=== PATIENT | female | born 1950 | race African-American/Black ===

== ENCOUNTER 2016-08-16 12:06 | Emergency (ER) | payer OTHER, MEDICAID ==
[2016-08-16 12:19] VITALS: BP 151/67; BMI 33.6
--- NOTE | 2016-08-16 12:32 | DR.GENAD ---
HPI - PCP Primary Care Physician: jori real - Complaint/Symptoms Chief Complaint Doctors Comments: Patient has an appointment with metal flow coordinator on Wednesday. She admits to three pillow orthopnea, PND and can walk only a short distance before becoming tired. She has CHF by history, and on a breathing machine daily for lungs. Chief Complaint:: patient stated she has been short of breath for several days stated she just feels tired all the time. - Source History Provided: Patient - Mode of Arrival Mode of Arrival: Ambulatory - Timing Onset of Chief Complaint: 08/16/16 PMH - PMH Past Medical History: Yes Past Medical History: Asthma, Diabetes Past Surgical History: Yes Surgical History: Ortho Surgery - Family History History of Family Medical Conditions: No - Social History Does patient currently use any type of tobacco product: No Have you used tobacco products in the last 12 months: No Type of Tobacco Use: None Does any household member use tobacco: No Alcohol Use: None Do you use any recreational Drugs:: No Lives With: Alone Lives Where: Home - infectious screening In the last 2 months have you had wt loss of >10#?: NO Have you had fever, night sweats or hemotysis?: No Have you traveled outside the country in the last 6 months?: No Isolation: Standard ROS - Review of Systems Eyes: No Symptoms Reported ENTM: No Symptoms Reported Respiratoy: No Symptoms Reported Cardiovascular: No Symptoms Reported Gastrointestinal/Abdominal: No Symptoms Reported Genitourinary: No Symptoms Reported Neurological: No Symptoms Reported Musculoskeletal: No Symptoms Reported Integumentary: No Symptoms Reported Hematologic/Lymphatic: No Symptoms Reported Endocrine: No Symptoms Reported Psychiatric: No Symptoms Reported All Other Systems: Reviewed and Negative PE - Vital Signs Vitals: Temperature 98.9 F Pulse Rate 110 Respiratory Rate 18 Blood Pressure 151/67 O2 Sat by Pulse Oximetry 100 - General Limitations: No Limitations General Appearance: Alert, In No Apparent Distress - Head Head Exam: Normal Inspection - Eyes Eye exam: Normal Appearance, PERRL, EOMI - ENT ENT Exam: Normal Exam External Ear Exam: Normal External Inspection TM/Canal Exam: Left Normal Nose Exam: Normal Nose Exam Mouth Exam: Normal Inspection Throat Exam: Normal Inspection - Neck Neck Exam: Normal Inspection - Chest Chest Inspection: Normal Inspection - Respiratory Respiratory Exam: Bilateral Clear to Auscultation - Cardiovascular Cardiovascular Exam: Regular Rate, Normal Rhythm - Abdominal Exam Abdominal Exam: Normal Inspection Abdominal Tenderness: negative: RUQ, RLQ, LUQ, LLQ, Epigastrium, Suprapubic, Diffuse, Mild, Moderate, Severe, Other - Extremities Extremities Exam: Normal Inspection, Full ROM - Back Back Exam: Normal Inspection, Tenderness - Neurologic Neurological Exam: Alert, Oriented X3, CN II-XII Intact - Psychiatric Psychiatric Exam: Normal Affect Course - Reevaluation 1st: Unchanged ROR - Labs Reviewed Laboratory Results Reviewed?: Yes (glucose elevated) Result Diagrams: 08/16/16 12:40 08/16/16 12:40 Laboratory: WBC 8.2 X10^3/uL (3.6-10.0) 08/16/16 12:40 RBC 4.50 X10^6/uL (3.5-5.4) 08/16/16 12:40 Hgb 12.5 g/dL (12.0-16.0) 08/16/16 12:40 Hct 37.7 % (36.0-47.0) 08/16/16 12:40 MCV 83.8 fL (80.0-100.0) 08/16/16 12:40 MCH 27.8 pg (27.0-34.0) 08/16/16 12:40 MCHC 33.1 g/dL (33.0-35.0) 08/16/16 12:40 RDW 13.8 % (11.6-16.5) 08/16/16 12:40 Plt Count 371 X10^3/uL (150.0-450.0) 08/16/16 12:40 MPV 6.8 fL (7.4-11.0) L 08/16/16 12:40 Neut % 62.5 % (42.0-75.0) 08/16/16 12:40 Lymph % 32.1 % (21.0-51.0) 08/16/16 12:40 Amador % 2.7 % (0.0-13.0) 08/16/16 12:40 Eos % 1.3 % (0.9-2.9) 08/16/16 12:40 Baso % 1.4 % (0.2-1.0) H 08/16/16 12:40 Neut # 5.1 x10^3/uL (2.2-4.8) H 08/16/16 12:40 Lymph # 2.6 X10^3/uL (1.3-2.9) 08/16/16 12:40 Amador # 0.2 x10^3/uL (0.3-0.8) L 08/16/16 12:40 Eos # 0.1 x10^3/uL (0.0-0.2) 08/16/16 12:40 Baso # 0.1 X10^3/uL (0.0-0.1) 08/16/16 12:40 Absolute Nucleated RBC 0.0 /100WBC 08/16/16 12:40 Sodium 136 mmol/L (136-145) 08/16/16 12:40 Corrected Sodium 139 mmol/L (136-145) 08/16/16 12:40 Potassium 4.2 mmol/L (3.5-5.1) 08/16/16 12:40 Chloride 100 mmol/L (98-107) 08/16/16 12:40 Carbon Dioxide 24.3 mmol/L (21-32) 08/16/16 12:40 BUN 19 mg/dL (7-18) H 08/16/16 12:40 Creatinine 0.94 mg/dL (0.55-1.02) 08/16/16 12:40 Est GFR (MDRD) Af Amer > 60 (>60) 08/16/16 12:40 Est GFR (MDRD) Non-Af > 60 (>60) 08/16/16 12:40 Glucose 211 mg/dL (65-99) H 08/16/16 12:40 Calcium 9.5 mg/dL (8.5-10.1) 08/16/16 12:40 Corrected Calcium TNP 08/16/16 12:40 Total Bilirubin 0.50 mg/dL (0.2-1.0) 08/16/16 12:40 AST 16 Units/L (15-37) 08/16/16 12:40 ALT 19 Units/L (12-78) 08/16/16 12:40 Alkaline Phosphatase 74 Units/L (46-116) 08/16/16 12:40 Total Protein 8.1 g/dL (6.4-8.2) 08/16/16 12:40 Albumin 3.7 g/dL (3.4-5.0) 08/16/16 12:40 Globulin 4.4 g/dL (2.5-4.5) 08/16/16 12:40 Albumin/Globulin Ratio 0.8 Ratio (1.1-2.1) L 08/16/16 12:40 - XRAY XRAY Interpreted by: Radiologist (Chest: no acute cardiopulmonary disease) - Diagnosis Discharge Problem: Bronchitis - Discharge Plan Condition: Stable - Follow ups/Referrals Follow ups/Referrals: NFD,None [Primary Care Provider] - 3 days - Instructions
[2016-08-16 12:52] LABS: BASOPHILS # (AUTO) 0.1 X10^3/uL (0.0-0.1); BASOPHILS % (AUTO) 1.4 % (0.2-1.0); EOSINOPHILS # (AUTO) 0.1 x10^3/uL (0.0-0.2); EOSINOPHILS % (AUTO) 1.3 % (0.9-2.9); HEMATOCRIT 37.7 % (36.0-47.0); HEMOGLOBIN 12.5 g/dL (12.0-16.0); LYMPHOCYTES # (AUTO) 2.6 X10^3/uL (1.3-2.9); LYMPHOCYTES % (AUTO) 32.1 % (21.0-51.0); MEAN CORPUSCULAR HEMOGLOBIN 27.8 pg (27.0-34.0); MEAN CORPUSCULAR HGB CONC 33.1 g/dL (33.0-35.0); MEAN CORPUSCULAR VOLUME 83.8 fL (80.0-100.0); MEAN PLATELET VOLUME 6.8 fL (7.4-11.0); MONOCYTES # (AUTO) 0.2 x10^3/uL (0.3-0.8); MONOCYTES % (AUTO) 2.7 % (0.0-13.0); NEUTROPHILS # (AUTO) 5.1 x10^3/uL (2.2-4.8); NEUTROPHILS % (AUTO) 62.5 % (42.0-75.0); PLATELET COUNT 371 X10^3/uL (150.0-450.0); RED CELL DISTRIBUTION WIDTH 13.8 % (11.6-16.5); WHITE BLOOD COUNT 8.2 X10^3/uL (3.6-10.0)
[2016-08-16 13:01] LABS: ALANINE AMINOTRANSFERASE 19 Units/L (12-78); ALBUMIN 3.7 g/dL (3.4-5.0); ALKALINE PHOSPHATASE 74 Units/L (46-116); ASPARTATE AMINO TRANSFERASE 16 Units/L (15-37); BLOOD UREA NITROGEN 19 mg/dL (7-18); CALCIUM 9.5 mg/dL (8.5-10.1); CARBON DIOXIDE 24.3 mmol/L (21-32); CHLORIDE 100 mmol/L (98-107); COR NA(FOR HYPERGLY) 139 mmol/L (136-145); CREATININE 0.94 mg/dL (0.55-1.02); GLUCOSE 211 mg/dL (65-99); SODIUM 136 mmol/L (136-145); TOTAL PROTEIN 8.1 g/dL (6.4-8.2); eGFR BLACK RACES > 60 (>60); eGFR NON BLACK RACES > 60 (>60)
--- NOTE | 2016-08-16 14:06 | RAD ---
HISTORY: Shortness of breath and cough 1 month Study: Two-view chest Comparison: January 16, 2014 Findings: The trachea is midline. The cardiac silhouette is unremarkable. The lungs are clear without focal infiltrate or effusion. The bony thorax is unremarkable. IMPRESSION: 1. No acute cardiopulmonary disease. Reported By:
== END 2016-08-16 14:18 | disposition home or self-care (01) ==
LOC: ER 12:12
DX: J40 Bronchitis, not specified as acute or chronic (principal)
CPT/HCPCS: 36415; 71020; 80053; 85025; 99282; 99283

== ENCOUNTER 2016-12-16 12:23 | Emergency (ER) | payer MEDICAID, OTHER ==
[2016-12-16 12:31] VITALS: BP 131/69; BMI 32.8
--- NOTE | 2016-12-16 12:46 | DR.GENAD ---
HPI - PCP Primary Care Physician: nfd - Complaint/Symptoms Chief Complaint Doctors Comments: Patient states that she spent the weekend in [place] and got bedbug bites. Additionally c/o cough, and vomiting. Denies fever or diarrhea Chief Complaint:: pt c/o cough vomited up yellowish greenish sputum, bed bug bites fever - Source History Provided: Patient - Mode of Arrival Mode of Arrival: Ambulatory - Timing Onset of Chief Complaint: 12/09/16 PMH - PMH Past Medical History: Yes Past Medical History: Asthma, Diabetes Past Surgical History: Yes Surgical History: Ortho Surgery - Family History History of Family Medical Conditions: No - Social History Does patient currently use any type of tobacco product: No Have you used tobacco products in the last 12 months: No Type of Tobacco Use: None Do you use any recreational Drugs:: No Lives With: Family Lives Where: Home - infectious screening In the last 2 months have you had wt loss of >10#?: NO Have you had fever, night sweats or hemotysis?: No Have you traveled outside the country in the last 6 months?: No Isolation: Standard ROS - Review of Systems Constitutional: No Symptoms Reported Eyes: No Symptoms Reported ENTM: No Symptoms Reported Respiratoy: No Symptoms Reported Cardiovascular: No Symptoms Reported Gastrointestinal/Abdominal: No Symptoms Reported Genitourinary: No Symptoms Reported Neurological: No Symptoms Reported Musculoskeletal: No Symptoms Reported Integumentary: No Symptoms Reported Hematologic/Lymphatic: No Symptoms Reported Endocrine: No Symptoms Reported Psychiatric: No Symptoms Reported All Other Systems: Reviewed and Negative PE - Vital Signs Vitals: Temperature 98.6 F Pulse Rate 96 Respiratory Rate 18 Blood Pressure 131/69 O2 Sat by Pulse Oximetry 99 - General Limitations: No Limitations General Appearance: Alert, In No Apparent Distress - Head Head Exam: Normal Inspection, Atraumatic - Eyes Eye exam: Normal Appearance, PERRL, Scleral Icterus - ENT ENT Exam: Normal Exam External Ear Exam: Normal External Inspection TM/Canal Exam: Bilateral Normal Nose Exam: Normal Nose Exam Mouth Exam: Normal Inspection Throat Exam: Normal Inspection - Neck Neck Exam: Normal Inspection, Full ROM - Chest Chest Inspection: Normal Inspection - Respiratory Respiratory Exam: Normal Lung Sounds Bilat Respiratory Exam: Bilateral Clear to Auscultation - Cardiovascular Cardiovascular Exam: Regular Rate, Normal Rhythm - Abdominal Exam Abdominal Exam: Normal Inspection, Normal Bowel Sounds Abdominal Tenderness: negative: RUQ, RLQ, LUQ, LLQ, Epigastrium, Suprapubic, Diffuse, Mild, Moderate, Severe, Other - Extremities Extremities Exam: Normal Inspection, Full ROM - Back Back Exam: Normal Inspection, Full ROM - Neurologic Neurological Exam: Alert, Oriented X3, CN II-XII Intact - Psychiatric Psychiatric Exam: Normal Affect, Normal Mood - Skin Skin Exam: Warm, Dry, Intact Course - Reevaluation 1st: Improved ROR - Labs Reviewed Result Diagrams: 12/16/16 13:00 12/16/16 13:00 Laboratory: WBC 6.9 X10^3/uL (3.6-10.0) 12/16/16 13:00 RBC 4.50 X10^6/uL (3.5-5.4) 12/16/16 13:00 Hgb 12.4 g/dL (12.0-16.0) 12/16/16 13:00 Hct 37.7 % (36.0-47.0) 12/16/16 13:00 MCV 83.7 fL (80.0-100.0) 12/16/16 13:00 MCH 27.6 pg (27.0-34.0) 12/16/16 13:00 MCHC 33.0 g/dL (33.0-35.0) 12/16/16 13:00 RDW 13.2 % (11.6-16.5) 12/16/16 13:00 Plt Count 335 X10^3/uL (150.0-450.0) 12/16/16 13:00 MPV 6.7 fL (7.4-11.0) L 12/16/16 13:00 Neut % 71.0 % (42.0-75.0) 12/16/16 13:00 Lymph % 23.6 % (21.0-51.0) 12/16/16 13:00 Curry % 3.6 % (0.0-13.0) 12/16/16 13:00 Eos % 0.8 % (0.9-2.9) L 12/16/16 13:00 Baso % 1.0 % (0.2-1.0) 12/16/16 13:00 Neut # 4.9 x10^3/uL (2.2-4.8) H 12/16/16 13:00 Lymph # 1.6 X10^3/uL (1.3-2.9) 12/16/16 13:00 Curry # 0.2 x10^3/uL (0.3-0.8) L 12/16/16 13:00 Eos # 0.1 x10^3/uL (0.0-0.2) 12/16/16 13:00 Baso # 0.1 X10^3/uL (0.0-0.1) 12/16/16 13:00 Absolute Nucleated RBC 0.0 /100WBC 12/16/16 13:00 Sodium 134 mmol/L (136-145) L 12/16/16 13:00 Corrected Sodium 141 mmol/L (136-145) 12/16/16 13:00 Potassium 4.8 mmol/L (3.5-5.1) 12/16/16 13:00 Chloride 99 mmol/L (98-107) 12/16/16 13:00 Carbon Dioxide 27.2 mmol/L (21-32) 12/16/16 13:00 BUN 15 mg/dL (7-18) 12/16/16 13:00 Creatinine 1.10 mg/dL (0.55-1.02) H 12/16/16 13:00 Est GFR (MDRD) Af Amer > 60 (>60) 12/16/16 13:00 Est GFR (MDRD) Non-Af 53 (>60) L 12/16/16 13:00 Glucose 384 mg/dL (65-99) H 12/16/16 13:00 Calcium 9.2 mg/dL (8.5-10.1) 12/16/16 13:00 - Diagnosis Discharge Problem: URI (upper respiratory infection) Qualifiers: URI type: unspecified viral URI Qualified Code(s): J06.9 - Acute upper respiratory infection, unspecified; B97.89 - Other viral agents as the cause of diseases classified elsewhere - Discharge Plan Condition: Stable - Follow ups/Referrals Follow ups/Referrals: NFD,None [Primary Care Provider] - 3 days - Instructions
[2016-12-16] MEDS ORDERED: NS 1000 ML 1,000 ML IV ONE (12:49)
[2016-12-16] MEDS ORDERED: ZOFRAN INJ 4 MG VIAL IVP ONE (12:51)
[2016-12-16] MEDS ORDERED: NS 1000 ML 1,000 ML ONE (13:04)
[2016-12-16] MEDS ORDERED: ZOFRAN INJ 4 MG VIAL ONE (13:04)
[2016-12-16 13:09] LABS: BASOPHILS # (AUTO) 0.1 X10^3/uL (0.0-0.1); EOSINOPHILS # (AUTO) 0.1 x10^3/uL (0.0-0.2); EOSINOPHILS % (AUTO) 0.8 % (0.9-2.9); HEMATOCRIT 37.7 % (36.0-47.0); HEMOGLOBIN 12.4 g/dL (12.0-16.0); LYMPHOCYTES # (AUTO) 1.6 X10^3/uL (1.3-2.9); LYMPHOCYTES % (AUTO) 23.6 % (21.0-51.0); MEAN CORPUSCULAR HEMOGLOBIN 27.6 pg (27.0-34.0); MEAN CORPUSCULAR VOLUME 83.7 fL (80.0-100.0); MEAN PLATELET VOLUME 6.7 fL (7.4-11.0); MONOCYTES # (AUTO) 0.2 x10^3/uL (0.3-0.8); MONOCYTES % (AUTO) 3.6 % (0.0-13.0); NEUTROPHILS # (AUTO) 4.9 x10^3/uL (2.2-4.8); PLATELET COUNT 335 X10^3/uL (150.0-450.0); RED CELL DISTRIBUTION WIDTH 13.2 % (11.6-16.5); WHITE BLOOD COUNT 6.9 X10^3/uL (3.6-10.0)
[2016-12-16 13:14] LABS: BLOOD UREA NITROGEN 15 mg/dL (7-18); CALCIUM 9.2 mg/dL (8.5-10.1); CARBON DIOXIDE 27.2 mmol/L (21-32); CHLORIDE 99 mmol/L (98-107); COR NA(FOR HYPERGLY) 141 mmol/L (136-145); SODIUM 134 mmol/L (136-145); eGFR BLACK RACES > 60 (>60); eGFR NON BLACK RACES 53 (>60)
[2016-12-16] MEDS ORDERED: HumuLIN R SUBCUT PRN (13:59)
[2016-12-16] MEDS ORDERED: HumuLIN R ONE (14:03)
[2016-12-16] MEDS ORDERED: SNACK - Diabetic Appropriate PO SCH (20:00)
== END 2016-12-16 14:30 | disposition home or self-care (01) ==
LOC: ER 12:35
DX: J06.9 Acute upper respiratory infection, unspecified (principal)
CPT/HCPCS: 36415; 80048; 85025; 96365; 96372; 96374; 99283; A4222; J1815; J2405